=== PATIENT | male | born 1940 | race Caucasian/White ===

== ENCOUNTER 2017-08-25 22:09 | Emergency (ER) | payer MEDICARE, OTHER ==
[~2017-08-25] VITALS: Ht 190.5 cm; Wt 117.9 kg
[2017-08-25] MEDS ORDERED: NORVASC5 MG PO (22:23)
[2017-08-25] MEDS ORDERED: COZAAR100 MG PO (22:23)
[2017-08-25] MEDS ORDERED: ELIQUIS5 MG PO (22:23)
[2017-08-25] MEDS ORDERED: SIMVASTATIN20 MG PO (22:23)
[2017-08-25] MEDS ORDERED: ASPIRIN325 MG PO (22:24)
[2017-08-25] MEDS ORDERED: OMEPRAZOLE20 MG PO (22:24)
== END 2017-08-26 00:01 | disposition home or self-care (01) ==
LOC: ED 22:09
DX: T18.108A Unspecified foreign body in esophagus causing other injury, initial encounter (principal); I10 Essential (primary) hypertension; Z96.653 Presence of artificial knee joint, bilateral; Z79.82 Long term (current) use of aspirin; Z79.899 Other long term (current) drug therapy
CPT/HCPCS: 99282